=== PATIENT | female | born 2000 | race Caucasian/White ===

== ENCOUNTER → 2020-06-11 16:00 | Outpatient (BNVA) | payer BC, SELFPAY | PROVIDERS: Family Provider Family Medicine; PCP Family Medicine; Visit Provider Nurse Practitioner Women's Health | DX: Z01.419 Encounter for gynecological examination (general) (routine) without abnormal findings (principal); B37.3 Candidiasis of vulva and vagina | CPT/HCPCS: 88175 ==

== ENCOUNTER 2021-06-04 08:29 | Outpatient (CLI) | payer BC, SELFPAY ==
--- NOTE | 2021-06-04 08:36 | US_ITS ---
WS: [id number] ULTRASOUND BREAST BILATERAL TECHNIQUE: Ultrasound bilateral breast focused area of concern. CLINICAL INFORMATION: BREAST TENDERNESS COMPARISON: Outside ultrasounds May 14, 2021 FINDINGS: Ultrasound performed in the areas of concern bilateral breasts. Ultrasound left breast 1200-600 position. Ultrasound right breast 1200-700 clock position. Incidental small left breast cyst at 12:00 position with a few internal septations measuring 6.9 x 6.3 mm. This has a benign appearance. No suspicious abnormality in the right breast. No other significant findings. US/US breast BI limited* [id number] IMPRESSION: BI-RADS 2 BENIGN RECOMMEND ANNUAL SCREENING MAMMOGRAPHY AGE 38
== END 2021-06-04 08:30 | disposition home or self-care (01) ==
LOC: RAD 08:34
PROVIDERS: PCP Family Medicine; Visit Provider Family Medicine
DX: N64.4 Mastodynia (principal)
CPT/HCPCS: 76642

== ENCOUNTER 2021-10-20 15:52 | Emergency (ER) | payer BC, SELFPAY ==
[2021-10-20 16:20] VITALS: BP 118/75; PULSE 67; RESP 17; TEMP 36.8; O2SAT 100; BMI 29.7
--- NOTE | 2021-10-20 16:28 | W.ED.HA ---
Documented by User: Ramila Mccoy 10/20/21 16:55 HPI - Headache General: Chief Complaint: Headache Stated Complaint: Severe Migraine Time Seen by Provider: 10/20/21 16:28 History of Present Illness: PERERA worsening x 3 days, dizzy episode, and now nausea and migraine Onset (ago): day(s) (3) Onset description: gradually Severity: moderate Review of Systems General: Reports: 10 or more systems reviewed and unremarkable except in HPI and below Neuro: Reports: headache(s), dizziness and vertigo PFSH ED PFSH: Medical History No pertinent past medical history neghx: htn,dm,thyroid,dvt/pe PCP: Dr. Steel Surgical History History of placement of ear tubes History of tonsillectomy Family History Grandmother Heart disease Maternal Hypertension Maternal Stroke Maternal Denies family history of Colon cancer Ovarian cancer Diabetes Hypercholesteremia Breast cancer Uterine cancer Thyroid disease Social History Smoking and tobacco status: never smoked Physical Exam Const: COMMON NORMALS: no acute distress, patient oriented x3, no limitations and alert GENERAL APPEARANCE: cooperative and comfortable ORIENTATION/CONSCIOUSNESS: Yes awake, Yes oriented to person, Yes oriented to place and Yes oriented to time HENMT: COMMON NORMALS: normocephalic, atraumatic, external ears normal, EAC's normal, TM's normal bilaterally and Normal external nose present HEAD & SCALP: normal to inspection, normocephalic and atraumatic FACE & SINUS: normal facial exam, sinuses nontender and face symmetric NOSE: Normal external nose present, Normal nares present and No nasal discharge present EXTERNAL EAR: Yes external ears normal EXTERNAL AUDITORY CANAL: EAC's normal TYMPANIC MEMBRANE: TM's normal bilaterally MOUTH: Normal oral and palatal mucosa present, lip normal and tongue normal THROAT: posterior oropharynx normal, tonsils normal and uvula midline Eye: COMMON NORMALS: Equal, round and reactive pupils present, EOMs intact bilaterally and conjunctivae normal GENERAL EYE: appearance normal, both eyes and all related structures and normal light reflex EYELID: eyelids normal CONJUNCTIVA: Yes conjunctivae normal PUPIL: Yes Equal, round and reactive pupils present EOM: Yes EOM abnormal DIRECT OPHTHALMOSCOPY: Yes normal light reflex Neck/C-Spine: COMMON NORMALS: full ROM, no lymphadenopathy, supple, no meningeal signs, no JVD and Thyroid normal GENERAL: Yes normal visual inspection THYROID: Thyroid normal CERVICAL SPINE: Yes cervical ROM normal and Yes normal cervical lordosis Lymph: LYMPHATIC: no lymphadenopathy noted Chest: COMMONS NORMALS: normal inspection of the chest and normal palpation of entire chest wall Resp: COMMON NORMALS: normal respiratory effort, No retractions and clear to auscultation bilaterally AUSCULTATION: clear to auscultation bilaterally Cardio: COMMON NORMALS: no JVD, regular rate, regular rhythm, S1 normal heart sound present, S2 normal heart sound present, No gallops present (Cardio), No clicks present (Cardio), No murmurs present (Cardio), No rub (Cardio) and Peripheral pulses 2+ throughout RATE: regular rate RHYTHM: regular rhythm HEART SOUNDS: S1 normal heart sound present and S2 normal heart sound present PERIPHERAL PULSES: Peripheral pulses 2+ throughout GI: COMMON NORMALS: Normal to inspection, nondistended, normoactive bowel sounds present, Soft to palpation, non-tender and no masses PALPATION: Yes Soft to palpation : COMMON NORMALS: Yes no CVA tenderness and Yes normal external appearance BLADDER/KIDNEY EXAM: Yes no CVA tenderness Back/Pelvis: COMMON NORMALS: no CVA tenderness, thoracic and lumbar spine normal to inspection, no thoracic nor lumbar tenderness and thoraco-lumbar ROM normal Extremity: COMMON NORMALS: normal to inspection, full ROM, capillary refill normal, no joint enlargement, no clubbing, cyanosis or edema, no calf tenderness and no pedal edema GENERAL: Yes normal exam except as noted Neuro: COMMON NORMALS: patient oriented x3, moves all extremities, no focal motor deficits, no sensory deficits noted and gait normal SENSORIUM/ORIENTATION: Yes alert, Yes oriented to person, Yes oriented to place and Yes oriented to time MENINGEAL SIGNS: Yes no meningeal signs Psych: COMMON NORMALS: mental status grossly normal, Normal thought process present, cooperative, normal affect, speech normal and activity/motor behavior normal SPEECH: Yes normal speech THOUGHT PROCESS: Normal thought process present Skin: COMMON NORMALS: no rashes or lesions noted, no wounds and turgor normal GENERAL SKIN EXAM: no rashes or lesions noted and turgor normal Course Vital Signs: Vital signs: Vital Signs Temperature 98.2 F 10/20/21 16:20 Pulse Rate 67 10/20/21 16:20 Respiratory Rate 17 10/20/21 16:20 Blood Pressure 118/75 10/20/21 16:20 Pulse Oximetry 100 10/20/21 16:20 MDM - Headache Medical Decision Making Pt CT head pending. Migraine cocktail discussed as well as some supplements for prevention of migraines. Care transferred to Kade Escamilla NP. Lab Data Radiology Impressions Head CT 10/20/21 16:55 IMPRESSION: No acute intracranial abnormality. Discharge Plan Discharge Patient Disposition: Home Clinical Impression: Migraine Condition: Stable Prescriptions: New naproxen 500 mg tablet 500 mg PO BID PRN (Reason: headache) Qty: 20 0RF promethazine 25 mg tablet 25 mg PO BID PRN (Reason: headache) Qty: 20 0RF Discharge Orders: Discharge ED (Routine); Ordered 10/20/21 Ordered By: Eric Escamilla Referrals: Eldon Steel MD [Primary Care Provider] - Discharge Diet: Usual diet Discharge Activity: Increase activity as tolerated Patient Instructions: Acute Headache (ED) Activity Restrictions/Additional Instructions: Home and rest. Drink plenty of fluids. Activity as tolerated. Follow-up with primary care for further instruction and evaluation. Return to ER for new concerns or worsening symptoms. Coding Level of Care Code ED Gas Collection System Operator for Chg Fwd Exam Comprehensive Documented by User: JERMAIN Weston 10/20/21 18:43 HPI - Headache General: Chief Complaint: Headache Stated Complaint: Severe Migraine Time Seen by Provider: 10/20/21 16:28 [facility] ED PFSH: Medical History No pertinent past medical history neghx: htn,dm,thyroid,dvt/pe PCP: Dr. Steel Surgical History History of placement of ear tubes History of tonsillectomy Family History Grandmother Heart disease Maternal Hypertension Maternal Stroke Maternal Denies family history of Colon cancer Ovarian cancer Diabetes Hypercholesteremia Breast cancer Uterine cancer Thyroid disease Social History Smoking and tobacco status: never smoked Course Vital Signs: Vital signs: Vital Signs Temperature 98.2 F 10/20/21 16:20 Pulse Rate 67 10/20/21 16:20 Respiratory Rate 17 10/20/21 16:20 Blood Pressure 118/75 10/20/21 16:20 Pulse Oximetry 100 10/20/21 16:20 MDM - Headache Medical Decision Making Pt CT head pending. Migraine cocktail discussed as well as some supplements for prevention of migraines. Care transferred to Kade Escamilla NP. Patient comes in today with complaints of migraine headache for the last 3 days. Patient reported dizziness today and passing out. On arrival patient complained of the headache. Patient was first evaluated and initiated care by Katherine Mccoy NP. On my exam patient had no focal neurodeficits. Patient appeared in mild to moderate pain. Vital signs were normal. Differential diagnosis includes intracranial bleeding, mass-effect, migraine headache. Patient was medicated with diphenhydramine, dexamethasone, and ketorolac and 500 mils of normal saline. Patient did have improvement of the headache and felt well to go home. Discussed need for follow-up with primary care for 4 evaluation and treatment. Patient was written for some naproxen and promethazine to assist with migraines or headaches. I did offer neurology follow-up but patient at this time did not want to seek evaluation with our neurology team. Lab Data Radiology Impressions Head CT 10/20/21 16:55 IMPRESSION: No acute intracranial abnormality. Discharge Plan Discharge Patient Disposition: Home Clinical Impression: Migraine Condition: Stable Prescriptions: New naproxen 500 mg tablet 500 mg PO BID PRN (Reason: headache) Qty: 20 0RF promethazine 25 mg tablet 25 mg PO BID PRN (Reason: headache) Qty: 20 0RF Discharge Orders: Discharge ED (Routine); Ordered 10/20/21 Ordered By: Eric Escamilla Referrals: Eldon Steel MD [Primary Care Provider] - Discharge Diet: Usual diet Discharge Activity: Increase activity as tolerated Patient Instructions: Acute Headache (ED) Activity Restrictions/Additional Instructions: Home and rest. Drink plenty of fluids. Activity as tolerated. Follow-up with primary care for further instruction and evaluation. Return to ER for new concerns or worsening symptoms. Coding Level of Care Code ED Gas Collection System Operator for Jazmyne Fwcan Exam Comprehensive
--- NOTE | 2021-10-20 16:55 | CTR_ITS ---
PROCEDURE INFORMATION: Exam: CT Head Without Contrast Exam date and time: 10/20/2021 5:10 PM Age: 21 years old Clinical indication: Pain; Headache; Migraine; Aura effect not specified; Additional info: Severe headache/dizziness TECHNIQUE: Imaging protocol: Computed tomography of the head without contrast. Radiation optimization: All CT scans at this facility use at least one of these dose optimization techniques: automated exposure control; mA and/or kV adjustment per patient size (includes targeted exams where dose is matched to clinical indication); or iterative reconstruction. COMPARISON: No relevant prior studies available. RADIATION DOSE METRICS: Total DLP (mGy-cm): 812.68 FINDINGS: Brain: Normal. No hemorrhage. Unremarkable white matter. No mass effect. Cerebral ventricles: No ventriculomegaly. Paranasal sinuses: Visualized sinuses are unremarkable. No fluid levels. Mastoid air cells: Visualized mastoid air cells are well aerated. Bones/joints: Unremarkable. No acute fracture. Soft tissues: Unremarkable. CT/CT head wo con* [id number] IMPRESSION: No acute intracranial abnormality.
[2021-10-20] MEDS: dexamethasone 10 mg/mL INJ 6 MG IVP (17:21)
[2021-10-20] MEDS: sodium chloride 0.9% 500 ML IV (17:21)
[2021-10-20] MEDS: diphenhydrAMINE 50 mg/mL SDV 1mL 25 MG IVP (17:22)
[2021-10-20] MEDS: ketorolac 30 mg/mL INJ IVP (17:22)
[2021-10-20] MEDS: ondansetron 2 mg/ML SDV 2 mL 4 MG IVP (17:23)
== END 2021-10-20 18:57 | disposition home or self-care (01) ==
PROVIDERS: Emergency Provider Nurse Practitioner Family; PCP Family Medicine
DX: G43.909 Migraine, unspecified, not intractable, without status migrainosus (principal)
CPT/HCPCS: 70450; 96361; 96374; 96375; 99284; J1100; J1200; J1885; J2405; J7040

== ENCOUNTER 2021-12-03 14:47 | Outpatient (CLI) | payer BC, SELFPAY ==
--- NOTE | 2021-12-03 14:56 | US_ITS ---
WS: [id number] ULTRASOUND BREAST BILATERAL TECHNIQUE: Ultrasound bilateral breast focused area of concern. CLINICAL INFORMATION: N64.59 - Other signs and symptoms in breast COMPARISON: May 14, 2021. June 04, 2021 FINDINGS: RIGHT BREAST: RIGHT breast 9:00 position. Normal underlying parenchymal tissue. No suspicious lesions. LEFT BREAST: Ultrasound LEFT breast at the 9:00 position. Incidental cyst 2:00 position 2 cm from the nipple measuring 7 x 6 x 5 mm with a single septation. This has a benign appearance and is unchanged since May 14, 2021 US/US breast BI limited* [id number] IMPRESSION: BI-RADS 2 benign FOLLOW UP: RECOMMEND ANNUAL SCREENING MAMMOGRAPHY AGE 38
== END 2021-12-03 14:48 | disposition home or self-care (01) ==
PROVIDERS: PCP Family Medicine; Visit Provider Surgery
DX: N64.59 Other signs and symptoms in breast (principal); N60.02 Solitary cyst of left breast
CPT/HCPCS: 76642

== ENCOUNTER 2022-04-05 11:40 | Day surgery (SDC) | payer BC, SELFPAY ==
[2022-04-05 12:05] VITALS: BP 106/56; PULSE 78; RESP 16; TEMP 36.1; O2SAT 97
[2022-04-05] MEDS: sodium chloride 0.9% 1,000 ML 30 ML IV (12:20)
--- NOTE | 2022-04-05 12:40 | W.PM.OPSUD ---
Surgery/Procedure H&P Update DATE OF PROCEDURE: April 05, 2022 DATE H&P PERFORMED: 03/30/22 H&P UPDATE INFORMATION: I have reviewed H&P completed within last 30 days, I have examined patient prior to procedure and No changes to prior documentation PREOP DIAGNOSIS: Right axillary mass PRIMARY INDICATION FOR PROCEDURE: The same PLANNED PROCEDURE: Operation Date: 04/05/22 13:20 Proposed Procedures p [id number] excision of right axillary mass R22.30(Right) - Krishan Winter MD
[2022-04-05] MEDS: ceFAZolin 2,000 MG in sodium chloride 0.9% (plus) 50 ML 100 MG IV (12:49)
--- NOTE | 2022-04-05 12:59 | ANES.PREANE2 ---
Pre-Anesthetic Assessment Height/Weight: Height 1.7 m Weight 90.718 kg Temp Pulse Resp BP Pulse Ox O2 Del Method 97 F L 78 16 106/56 97 04/05/22 12:05 04/05/22 12:05 04/05/22 12:05 04/05/22 12:05 04/05/22 12:05 04/05/22 12:05 Preop Diagnosis: Right axillary mass Operation Date: 04/05/22 13:20 Proposed Procedures p [id number] excision of right axillary mass R22.30(Right) - Krishan Winter MD Last intake: Intake Last Liquid Date 04/04/22 Last Liquid Time 21:00 Last Solid Date 04/04/22 Last Solid Time 18:00 Social No alcohol and No tobacco Exam alert, oriented x 3, clear to auscultation bilaterally and regular rate & rhythm Airway Cervical ROM: within normal limits Mallampati: Class I History/ROS No significant history except as noted and No significant complaints Pulmonary None reported CV/HEM None reported None reported Hepatic None reported GI None reported Metabolic None reported Musc/skel None reported Neuropsych None reported Anesthetic Plan ASA status: 1 Anesthesia: Anesthesia Evaluation, Eval. for regional block, General and MAC Risk of > 500 ml blood loss (7ml/kg in children): Yes, adequate IV access and fluids planned Medications/Allergies Home Medications Medication Instructions Recorded Confirmed Last Taken Type No Known Home Medications 04/04/22 04/04/22 Unknown History Allergies Allergy/AdvReac Type Severity Reaction Status Date / Time No Known Allergies Allergy Verified 04/05/22 12:04 Current Medications Generic Name Dose Route Start Last Admin Trade Name Girishq PRN Reason Stop Dose Admin Sodium Chloride 1,000 mls @ 30 mls/hr 04/05/22 12:00 04/05/22 12:20 Sodium Chloride 0.9% IV 04/06/22 11:59 30 mls/hr .Q24H INES Administration PFSH Anesthesia Medical History No pertinent past medical history neghx: htn,dm,thyroid,dvt/pe PCP: Dr. Steel Surgical History History of placement of ear tubes History of tonsillectomy Family History Grandmother Heart disease Maternal Hypertension Maternal Stroke Maternal Denies family history of Colon cancer Ovarian cancer Diabetes Hypercholesteremia Breast cancer Uterine cancer Thyroid disease Social History Smoking and tobacco status: never smoked Data Anesthesia Cardiac Studies: No Data to Display
[2022-04-05] MEDS: lidocaine 1% INJ 20 mL INJECTION (13:20)
--- NOTE | 2022-04-05 13:34 | PM.OP ---
Operative Report Date of procedure: April 05, 2022 Pre-op diagnosis: Preop Diagnosis Right axillary mass Post-op diagnosis: Right axillary sebaceous cyst Procedure done: Excision of right axillary mass Specimens removed/disposition: Right axillary mass Surgeon: Krishan Winter MD Music Video Director: Betsy Miller Circulating nurse Tiffany Anesthesia: MAC (java mobile developer page) Estimated blood loss (mL): 2 Procedure: After identifying the patient holding area, the right axilla was marked before the procedure by myself, patient was then taken to the operative suite, was placed in supine position, IV propofol was infused by anesthesia, prophylactic IV antibiotics were given per protocol, right arm was placed in 90? to her body, prep and drape of the right axillary and pectoralis regions was done under the usual sterile technique the right arm Time-out was done verifying the patient's name/date of /planned procedure and destination after the procedure, all were in agreement. After palpation of the right axillary lump, I did an elliptical incision on top of the masses(sebaceous cysts) corresponding to the skin crease, I was able to dissect using a sharp and blunt dissection and Bovie cauterization was used as well. Mass was then excised about 2 x 0.5 cm including 2 small sebaceous cysts and the specimen was then passed to the circulating nurse. Thorough irrigation of the cavity was done and hemostasis,Lidocaine 2% was injected at the site of the incision that prior to the injection aspiration was done to make sure no injection is going into any vessel. followed by deep dermal closure by 3-0 Vicryl, then 4-0 Monocryl for skin closure, followed by Mastisol and Steri-Strip. Fluffs and sports bra was applied Patient tolerated the procedure well, count of instruments, needles and sponges were completed at the end of the procedure. And then patient was taken to the recovery area in stable condition. I Was present for the whole entire procedure
[2022-04-05 13:40] VITALS: BP 130/72; PULSE 119; RESP 16; TEMP 36.1; O2SAT 100
[2022-04-05 13:40] LABS: OR HCG Qualitative Urine Negative (Negative)
[2022-04-05 13:45] VITALS: BP 130/72; PULSE 102; RESP 16; TEMP 36.1; O2SAT 100
[2022-04-05 13:50] VITALS: BP 122/71; PULSE 88; RESP 18; TEMP 36.1; O2SAT 96
[2022-04-05] MEDS: HYDROcodone-acetaminophen 5-325 mg Tablet 1 TAB PO (14:13)
--- NOTE | 2022-04-05 15:32 | ANE.PACU2 ---
Inpatient post-anesthesia follow up: Airway intact: Yes Vital signs: Temperature 97 F Pulse Rate 88 Respiratory Rate 18 Blood Pressure 122/71 Pulse Oximetry 96 Oxygen Delivery Me thod Room Air Oxygen Flow Rate Fraction of Inspir ed Oxygen Hydration adequate: Yes Nausea and vomiting: No Pain level: 1 Mental status: Baseline
== END 2022-04-05 14:25 | disposition home or self-care (01) ==
PROVIDERS: Anesthesiology; PCP Family Medicine; Visit Provider Surgery
PROC: (CPT 11402; principal; 2022-04-05 13:10)
DX: L72.0 Epidermal cyst (principal)
CPT/HCPCS: 11402; 12031; 81025; 84703; 88307; J0690; J2250; J2405; J2704; J3010; J7030

== ENCOUNTER 2022-09-12 15:19 | Outpatient (CLI) | payer OTHER, SELFPAY ==
--- NOTE | 2022-09-12 15:47 | US_ITS ---
WS: [id number] ULTRASOUND BREAST BILATERAL TECHNIQUE: Ultrasound bilateral breast focused area of concern. CLINICAL INFORMATION: N64.4 - Mastodynia COMPARISON: December 03, 2021 FINDINGS: Ultrasound in the area of concern bilaterally RIGHT BREAST: Ultrasound RIGHT breast 10:00 position 5 cm the nipple and 4 cm from the nipple. No ev idence of cystic or solid lesion. No underlying suspicious abnormalities. LEFT BREAST: Ultrasound LEFT breast 2:00 position 4 cm from the nipple and 2:00 position 1 cm from th e nipple. Tiny incidental cyst at the 2:00 position 1 cm from the nipple with a single septation unch anged in appearance since December 03, 2021. No other suspicious findings. US/US breast BI limited* [id number] IMPRESSION: BI-RADS 2 benign FOLLOW UP: Recommend annual screening mammography age 38
== END 2022-09-12 15:20 | disposition home or self-care (01) ==
LOC: RAD 15:22
PROVIDERS: PCP Family Medicine; Visit Provider Nurse Practitioner Women's Health
DX: Z01.419 Encounter for gynecological examination (general) (routine) without abnormal findings (principal); N64.4 Mastodynia; N60.02 Solitary cyst of left breast; Z11.3 Encounter for screening for infections with a predominantly sexual mode of transmission; Z12.72 Encounter for screening for malignant neoplasm of vagina
CPT/HCPCS: 76642; 86592; 86803; 87340; 87491; 87591; 87661; 87806; 88175

== ENCOUNTER → 2022-10-19 10:50 | Outpatient (BNVA) | payer OTHER, SELFPAY | PROVIDERS: PCP Family Medicine; Visit Provider Family Medicine | DX: Z68.33 Body mass index [BMI] 33.0-33.9, adult (principal); Z86.39 Personal history of other endocrine, nutritional and metabolic disease | CPT/HCPCS: 80053; 80061; 81000; 84439; 84443; 85025; 86376 ==

== ENCOUNTER → 2022-10-26 13:20 | Outpatient (BNVA) | payer OTHER, SELFPAY | PROVIDERS: PCP Family Medicine; Visit Provider Family Medicine | DX: J30.2 Other seasonal allergic rhinitis (principal) | CPT/HCPCS: 82785; 86003 ==

== ENCOUNTER → 2022-11-07 16:12 | Outpatient (BNVA) | payer OTHER, SELFPAY | PROVIDERS: PCP Family Medicine; Visit Provider Family Medicine | DX: R06.02 Shortness of breath (principal); R05.3 Chronic cough | CPT/HCPCS: 71046 ==

== ENCOUNTER → 2022-12-23 16:51 | Outpatient (BNVA) | payer OTHER, SELFPAY | PROVIDERS: PCP Family Medicine; Visit Provider Surgery | DX: R19.7 Diarrhea, unspecified (principal) | CPT/HCPCS: 36415; 80053; 83630; 83993; 84443; 85025; 87177; 87209; 87493; 87506 ==

== ENCOUNTER 2023-02-02 05:48 | Day surgery (SDC) | payer OTHER, SELFPAY ==
[2023-01-31 08:37] VITALS: BMI 31.6
[2023-02-02 06:04] VITALS: BP 112/73; PULSE 89; RESP 18; TEMP 36.5; O2SAT 99
[2023-02-02] MEDS: sodium chloride 0.9% 1,000 ML 30 ML IV (06:15)
[2023-02-02 06:18] LABS: OR HCG Qualitative Urine Negative (Negative)
--- NOTE | 2023-02-02 06:25 | W.PM.OPSFHP ---
Same Day Surgery H&P Indication for Procedure/HPI DATE OF PROCEDURE: February 02, 2023 CHIEF COMPLAINT/INDICATIONFOR SURGICAL PROCEDURE: Chronic diarrhea PREOP DIAGNOSIS: Possible IDB PLANNED PROCEDURE: Operation Date: 02/02/23 07:00 Proposed Procedures p [id number] egd/colon K52.9(Not Applicable) - Reese Tyler MD s Colonoscopy(Not Applicable) - Reese Tyler MD Medications/Allergies* Allergies/Adverse Reactions Allergy/AdvReac Type Severity Reaction Status Date / Time adhesive Allergy rash Verified 02/02/23 06:02 hydrocodone AdvReac Mild ADR-Nausea Verified 02/02/23 06:02 lactose intolerant Allergy diarrhea Uncoded 02/02/23 06:02 Pertinent History/Comorbid Conditions* Medical History (Updated 11/07/22 @ 15:56 by Luis Sy MD) Insomnia Mass of right axilla Migraines No pertinent past medical history neghx: htn,dm,thyroid,dvt/pe PCP: Dr. Steel Open wound of right axillary region Surgical History (Updated 10/19/22 @ 10:37 by Luis Sy MD) H/O removal of cyst (~03/2022) three epidermal cysts removed from her right axilla History of placement of ear tubes History of tonsillectomy Family History (Updated 06/11/20 @ 15:03 by Carina Roth) Heart disease Grandmother Maternal Hypertension Grandmother Maternal Stroke Grandmother Maternal Denies family history of Colon cancer Ovarian cancer Diabetes Hypercholesteremia Breast cancer Uterine cancer Thyroid disease Social History Smoking and tobacco status: never smoked Second hand smoke exposure: No Smoking risk assessment/counseling performed?: No Alcohol intake: former Desire information about alcohol rehabilitation?: No Counseling given: No Substance/Drug Use: never Desire information about substance/drug rehabilitation?: No Counseling given: No Pertinent Exam Findings alert, oriented x 3 and clear to auscultation bilaterally Recommendations Surgery/Procedure today Coding Level of Care Code Acute Code for Chg Fwd Diagnoses
--- NOTE | 2023-02-02 07:00 | ANES.PREANE2 ---
Pre-Anesthetic Assessment Height/Weight: Height 1.73 m Weight 94.347 kg Temp Pulse Resp BP Pulse Ox O2 Del Method 97.7 F 89 18 112/73 99 Room Air 02/02/23 06:04 02/02/23 06:04 02/02/23 06:04 02/02/23 06:04 02/02/23 06:04 02/02/23 06:04 Preop Diagnosis: Possible IDB Operation Date: 02/02/23 07:00 Proposed Procedures p [id number] egd/colon K52.9(Not Applicable) - Reese Tyler MD s Colonoscopy(Not Applicable) - Reese Tyler MD Was Beta Juvenal taken within 24 hours: N/A Was Clonidine taken within 24 hours: N/A Last intake: Intake Last Liquid Date 02/01/23 Last Liquid Time 22:00 Last Solid Date 01/31/23 Social No alcohol and No tobacco Exam alert, oriented x 3, clear to auscultation bilaterally and regular rate & rhythm Airway Submandibular: within normal limits Cervical ROM: within normal limits Mallampati: Class II Dentition: full History/ROS No significant history except as noted and No significant complaints Pulmonary None reported CV/HEM None reported None reported Hepatic None reported GI Gastroesophageal Reflux Disease Metabolic None reported Musc/skel None reported Neuropsych Anxiety Anesthetic Plan ASA status: 2 Anesthesia: Anesthesia Evaluation and MAC Risk of > 500 ml blood loss (7ml/kg in children): No Medications/Allergies Home Medications Medication Instructions Recorded Confirmed Last Taken Type budesonide-formoterol HFA 80 2 puff inhalation BID PRN sob 11/07/22 02/02/23 Unknown Rx mcg-4.5 mcg/actuation aerosol wheezing #10.2 grams inhaler (Symbicort) cetirizine 10 mg capsule (Allergy 10 mg PO DAILY #60 caps 11/07/22 01/31/23 01/30/23 Rx Relief (cetirizine)) fluticasone propionate 50 2 spray intranasal DAILY #16 grams 11/07/22 02/02/23 Unknown Rx mcg/actuation nasal spray,suspension (Flonase Allergy Relief) Allergies Allergy/AdvReac Type Severity Reaction Status Date / Time adhesive Allergy rash Verified 02/02/23 06:02 hydrocodone AdvReac Mild ADR-Nausea Verified 02/02/23 06:02 lactose intolerant Allergy diarrhea Uncoded 02/02/23 06:02 PFSH Anesthesia Medical History Insomnia Mass of right axilla Migraines No pertinent past medical history neghx: htn,dm,thyroid,dvt/pe PCP: Dr. Steel Open wound of right axillary region Surgical History H/O removal of cyst (~03/2022) three epidermal cysts removed from her right axilla History of placement of ear tubes History of tonsillectomy Family History Grandmother Heart disease Maternal Hypertension Maternal Stroke Maternal Father No problems noted. Mother No problems noted. Denies family history of Colon cancer Ovarian cancer Diabetes Hypercholesteremia Breast cancer Uterine cancer Thyroid disease Social History Smoking and tobacco status: never smoked Second hand smoke exposure: No Smoking risk assessment/counseling performed?: No Alcohol intake: former Desire information about alcohol rehabilitation?: No Counseling given: No Substance/Drug Use: never Desire information about substance/drug rehabilitation?: No Counseling given: No Female Reproductive History Date of last menstrual period: 01/20/23 Data Anesthesia Cardiac Studies: No Data to Display
[2023-02-02 07:39] VITALS: BP 122/52; PULSE 74; RESP 20; TEMP 36.2; O2SAT 100
[2023-02-02 07:52] VITALS: BP 112/55; PULSE 93; RESP 17; O2SAT 100
--- NOTE | 2023-02-02 08:00 | ANE.PACU2 ---
Inpatient post-anesthesia follow up: Airway intact: Yes Vital signs: Temperature 97.1 F Pulse Rate 93 Respiratory Rate 17 Blood Pressure 112/55 Pulse Oximetry 100 Oxygen Delivery Me thod Room Air Oxygen Flow Rate Fraction of Inspir ed Oxygen Hydration adequate: Yes Nausea and vomiting: No Pain level: 1 Mental status: Baseline
== END 2023-02-02 08:01 | disposition home or self-care (01) ==
PROVIDERS: Anesthesiology; PCP Family Medicine; Visit Provider Surgery
PROC: 0DJ08ZZ Inspection of Upper Intestinal Tract, Via Natural or Artificial Opening Endoscopic (ICD-10-PCS; CPT 43235; principal; 2023-02-02 07:00)
PROC: 0DJD8ZZ Inspection of Lower Intestinal Tract, Via Natural or Artificial Opening Endoscopic (ICD-10-PCS; CPT 45378; 2023-02-02 07:00)
DX: K52.9 Noninfective gastroenteritis and colitis, unspecified (principal); K21.9 Gastro-esophageal reflux disease without esophagitis
CPT/HCPCS: 43239; 45380; 81025; 84703; 88305; 88342; J2704; J7030

== ENCOUNTER → 2024-02-23 08:28 | Outpatient (BNVA) | payer OTHER, SELFPAY | PROVIDERS: PCP Family Medicine; Visit Provider Family Medicine | DX: N91.2 Amenorrhea, unspecified (principal) | CPT/HCPCS: 81025 ==

== ENCOUNTER → 2024-03-12 14:20 | Outpatient (BNVA) | payer OTHER, SELFPAY | PROVIDERS: PCP Family Medicine; Visit Provider Nurse Practitioner Women's Health | DX: N92.6 Irregular menstruation, unspecified (principal) | CPT/HCPCS: 82306; 83036; 84146; 84402; 84439; 84443; 84702 ==

== ENCOUNTER → 2024-04-17 15:41 | Outpatient (BNVA) | payer OTHER, SELFPAY | PROVIDERS: PCP Family Medicine; Visit Provider Nurse Practitioner Women's Health | DX: E55.9 Vitamin D deficiency, unspecified (principal); E28.2 Polycystic ovarian syndrome | CPT/HCPCS: 82306 ==

== ENCOUNTER → 2024-05-02 08:06 | Outpatient (BNVA) | payer OTHER, SELFPAY | PROVIDERS: PCP Family Medicine; Visit Provider Nurse Practitioner Women's Health | DX: E28.2 Polycystic ovarian syndrome (principal) | CPT/HCPCS: 76830 ==

== ENCOUNTER 2024-11-01 07:07 | Outpatient (CLI) | payer OTHER, SELFPAY ==
[2024-11-01 07:51] LABS: HCG Quantitative 9.38 mIU/mL
== END 2024-11-01 07:08 | disposition home or self-care (01) ==
PROVIDERS: PCP Family Medicine; Visit Provider Nurse Practitioner Family
DX: Z32.01 Encounter for pregnancy test, result positive (principal)
CPT/HCPCS: 36415; 84702

== ENCOUNTER 2024-11-04 07:04 | Outpatient (CLI) | payer OTHER, SELFPAY ==
[2024-11-04 07:47] LABS: HCG Quantitative 3.07 mIU/mL
== END 2024-11-04 07:05 | disposition home or self-care (01) ==
PROVIDERS: PCP Family Medicine; Visit Provider Nurse Practitioner Family
DX: Z32.01 Encounter for pregnancy test, result positive (principal)
CPT/HCPCS: 36415; 84702

== ENCOUNTER → 2024-12-18 15:54 | Outpatient (BNVA) | payer OTHER, SELFPAY | PROVIDERS: PCP Family Medicine; Visit Provider Obstetrics & Gynecology | DX: R10.2 Pelvic and perineal pain (principal) | CPT/HCPCS: 76830 ==

== ENCOUNTER → 2024-12-26 07:54 | Outpatient (BNVA) | payer OTHER, SELFPAY | PROVIDERS: PCP Family Medicine; Visit Provider Obstetrics & Gynecology | DX: R10.2 Pelvic and perineal pain (principal); N83.291 Other ovarian cyst, right side | CPT/HCPCS: 76830 ==